=== PATIENT | male | born 2000 | race Caucasian/White ===

== ENCOUNTER 2019-12-18 23:21 | Emergency (ER) | payer OTHER, SELFPAY ==
[~2019-12-18] VITALS: Ht 180.3 cm; Wt 87.7 kg
[2019-12-18 23:21] VITALS: BP 127/83
[2019-12-19] MEDS ORDERED: MAGICMW SSP (00:30)
[2019-12-19] MEDS ORDERED: VENTAER INH (00:30)
[2019-12-19] MEDS ORDERED: ZOFR8TAB24 PO (00:30)
--- NOTE | 2019-12-19 08:11 | REP ---
Oral chest x-ray: Single view. History: Chest discomfort. Abnormal breath sounds. Findings: The lungs are well inflated and clear. Pleural angles are sharp. Heart size is normal. No infiltrate is seen. Pulmonary vasculature is not increased. Nipple jewelry is noted incidentally. No bony abnormality is seen. Impression: No infiltrates seen. Negative portable chest x-ray. Electronically Signed by Andrei Dupree MD 12/19/2019 08:02 A
== END 2019-12-19 00:33 | disposition home or self-care (01) ==
LOC: M ED 23:21
DX: R05 Cough (principal); R06.02 Shortness of breath; M79.10 Myalgia, unspecified site; R07.0 Pain in throat; R51 Headache; R68.83 Chills (without fever); F17.200 Nicotine dependence, unspecified, uncomplicated
CPT/HCPCS: 71045; 87486; 87581; 87633; 87798; 87880; 99283; U0002